=== PATIENT | female | born 1995 | race Caucasian/White ===

== ENCOUNTER 2020-11-17 18:00 | Emergency (ER) | payer OTHER, SELFPAY ==
[2020-11-17 18:07] VITALS: BP 134/88; PULSE 76; RESP 18; TEMP 36.1; O2SAT 100; BMI 22.6
== END 2020-11-17 21:10 | disposition left against medical advice (07) ==
PROVIDERS: Emergency Provider Emergency Medicine; PCP Internal Medicine
DX: R51.9 Headache, unspecified (principal); R11.10 Vomiting, unspecified
CPT/HCPCS: 99281; 99282